=== PATIENT | female | born 1955 | race Caucasian/White ===

== ENCOUNTER 2017-02-14 13:50 | Emergency (ER) | payer MEDICAID ==
[~2017-02-14] VITALS: Ht 154.9 cm; Wt 60.0 kg
[~2017-02-14 13:50] MED LIST: ATOR40TA16 PO; BACL10TA PO; BUSP5TAB PO; DILA100C PO; LEVO100T5 PO; METF500T PO; REST15CA PO; TEGR200T PO
[2017-02-14 13:52] VITALS: BP 119/66; PULSE 70; RESP 17; TEMP 98.6; O2SAT 99
[2017-02-14] MEDS ORDERED: DIAZ5TAB PO (14:13)
[2017-02-14] MEDS ORDERED: SODIUM CHLOR 0.9% 1000 ML INJ 1,000 ML IV SCH (14:29)
[2017-02-14] MEDS ORDERED: SODIUM CHLORIDE 0.9% FLUSH 10 ML FLUSH IV FLUSH PRN (14:30)
--- NOTE | 2017-02-14 14:30 | PD ---
HPI Chief Complaint: GI Complaint Time Seen by Provider: 14:30 Travel History International Travel<30 days: No Contact w/Intl Traveler<30days: No Traveled to known affect area: No History of Present Illness HPI 61-year-old female with a history of hypertension, hyperlipidemia, diabetes, MS presents to the emergency department for evaluation of 1 week history of diarrhea. The patient states that she has had some intermittent abdominal cramping as well in the periumbilical region. Diarrhea is loose light brown watery stool multiple times throughout the day, states that the first 6 hours of today she's had 5 bowel movements already. She denies fever but admits to chills. States that she had one episode of nausea and dry heaves several days ago. Denies any vomiting. Denies cough or cold symptoms, dysuria, hematuria. Denies any aggravating or alleviating factors. She's been taking Imodium with no improvement of symptoms. The patient denies any recent travel. States that she has been visiting her sister in the hospital before the symptoms began. Denies any prior abdominal surgeries. No other complaints. PFSH Past Medical History Arthritis: Yes Autoimmune Disease: Yes (ms) Anxiety: Yes Cardiovascular Problems: Yes (heart disease) High Cholesterol: Yes Chest Pain: Yes Cerebrovascular Accident: Yes Coronary Artery Disease: Yes Diabetes: Yes Patient Takes Glucophage: Yes Herniated Disk: Yes Hypertension: Yes Immune Disorder: Yes (muscular sclerosis) Insomnia: Yes Neurologic: Yes (TRIGEMINAL NEUROLGIA) Thyroid Disease: Yes Tetanus Vaccination: > 5 Years Influenza Vaccination: No Menopausal: Yes Dilation and Curettage (D&C): Yes Past Surgical History Surgical History: No Previous Surgery Tonsillectomy: Yes Social History Alcohol Use: No Tobacco Use: No Substance Use: No Allergies-Medications (Allergen,Severity, Reaction): Coded Allergies: Neurontin (Verified Allergy, Severe, 02/14/17) Reported Meds & Prescriptions Reported Meds & Active Scripts Active Flagyl (Metronidazole) 500 Mg Tab 500 Mg PO TID 10 Days Reported Diazepam 5 Mg Tab 5 Mg PO Restoril (Temazepam) 15 Mg Cap 15 Mg PO HS PRN Dilantin (Phenytoin Extended) 100 Mg Cap 100 Mg PO TID Metformin (Metformin HCl) 500 Mg Tab 500 Mg PO DAILY With a meal Levothyroxine (Levothyroxine Sodium) 100 Mcg Tab 100 Mcg PO DAILY Tegretol (Carbamazepine) 200 Mg Tab 400 Mg PO BID Baclofen 10 Mg Tab 10 Mg PO TID Atorvastatin (Atorvastatin Calcium) 40 Mg Tab 40 Mg PO HS Review of Systems Except as stated in HPI: all other systems reviewed are Neg Physical Exam Narrative GENERAL: Well-nourished and well-developed pleasant patient in no acute distress who is nontoxic appearing. SKIN: Warm and dry. HEAD: Normocephalic and atraumatic. EYES: No injection, drainage, or hyphema noted. PERRLA. EOMI. ENT: No nasal drainage noted. Oropharynx is clear. NECK: Supple and the trachea is midline. CARDIOVASCULAR: Regular rate and rhythm. RESPIRATORY: Breath sounds are equal bilaterally with no accessory muscle use, wheezing, rhonchi, or crackles. GASTROINTESTINAL: Mild periumbilical tenderness to palpation. No rebound tenderness or guarding. Negative Asher's sign. Negative McBurney's point. Abdomen is soft, non-tender, and nondistended. MUSCULOSKELETAL: No obvious deformities, swelling, cyanosis, or ecchymosis is present throughout the upper and lower extremities. Patient has full range of motion without any signs of neurovascular compromise. NEUROLOGICAL: Awake, alert, and oriented. Normal speech and gait. Cranial nerves are grossly intact. Data Data Last Documented VS Vital Signs Date Time Temp Pulse Resp B/P Pulse Ox O2 Delivery O2 Flow Rate FiO2 02/14/17 13:52 98.6 70 17 119/66 99 Orders Complete Blood Count With Diff (02/14/17 14:29) Comprehensive Metabolic Panel (02/14/17 14:29) Lipase (02/14/17 14:29) Ct Abd/Pel W Iv Contrast(Rout) (02/14/17 14:29) Iv Access Insert/Monitor (02/14/17 14:29) Ecg Monitoring (02/14/17 14:29) Oximetry (02/14/17 14:29) Sodium Chlor 0.9% 1000 Ml Inj (Ns 1000 M (02/14/17 14:29) Sodium Chloride 0.9% Flush (Ns Flush) (02/14/17 14:30) Iohexol 350 Inj (Omnipaque 350 Inj) (02/14/17 16:38) Labs Laboratory Tests Test 02/14/17 15:20 White Blood Count 6.3 TH/MM3 Red Blood Count 3.60 MIL/MM3 Hemoglobin 10.9 GM/DL Hematocrit 32.0 % Mean Corpuscular Volume 88.9 FL Mean Corpuscular Hemoglobin 30.2 PG Mean Corpuscular Hemoglobin 33.9 % Concent Red Cell Distribution Width 14.6 % Platelet Count 352 TH/MM3 Mean Platelet Volume 7.6 FL Neutrophils (%) (Auto) 65.1 % Lymphocytes (%) (Auto) 22.9 % Monocytes (%) (Auto) 10.8 % Eosinophils (%) (Auto) 0.9 % Basophils (%) (Auto) 0.3 % Neutrophils # (Auto) 4.1 TH/MM3 Lymphocytes # (Auto) 1.4 TH/MM3 Monocytes # (Auto) 0.7 TH/MM3 Eosinophils # (Auto) 0.1 TH/MM3 Basophils # (Auto) 0.0 TH/MM3 CBC Comment DIFF FINAL Differential Comment Sodium Level 134 MEQ/L Potassium Level 3.7 MEQ/L Chloride Level 99 MEQ/L Carbon Dioxide Level 26.2 MEQ/L Anion Gap 9 MEQ/L Blood Urea Nitrogen 29 MG/DL Creatinine 1.01 MG/DL Estimat Glomerular Filtration 56 ML/MIN Rate Random Glucose 84 MG/DL Calcium Level 9.0 MG/DL Total Bilirubin 0.2 MG/DL Aspartate Amino Transf 32 U/L (AST/SGOT) Alanine Aminotransferase 42 U/L (ALT/SGPT) Alkaline Phosphatase 166 U/L Total Protein 8.4 GM/DL Albumin 3.9 GM/DL Lipase 197 U/L [facility] Medical Decision Making Medical Screen Exam Complete: Yes Emergency Medical Condition: Yes Differential Diagnosis Colitis versus diverticulitis versus C. difficile versus dehydration versus electrolyte abnormality versus gastroenteritis Narrative Course 61-year-old female presents to the emergency department for evaluation of diarrhea for one week with mild abdominal cramping. Patient is afebrile, vital signs are stable. Abdominal examination is essentially benign. IV access obtained, labs were drawn and sent. Patient is placed on cardiac telemetry and pulse oximetry monitoring. CT of the abdomen and pelvis has been ordered and is pending. Patient is administered IV fluids. CBC shows mild anemia with hemoglobin of 10.9, hematocrit 30.0. CMP shows mild dehydration with a creatinine 1.01, BUN 29, GFR 56. CT the abdomen and pelvis shows chronic atherosclerotic vascular calcifications and a small left ovarian cyst, no acute abnormalities. Patient has remained stable without complaint N the emergency department. Unfortunately she's been unable to provide a stool specimen while here in the ED. Due to the patient's recent exposure with visiting her sister in the hospital over the past week correlated with this diarrhea we'll treat her for possible C. difficile with Flagyl. Did discuss with the patient that this could potentially be contagious if she does have C. difficile and that she needs to wash her hands frequently and undergo contact precautions. Patient verbalizes understanding and agreement with treatment plan. I discussed the case with my attending physician Dr. Craig who is aware of the patients history, physical examination findings, and treatment plan. Diagnosis Primary Impression: Diarrhea Qualified Code: A09 - Diarrhea of presumed infectious origin Referrals: Primary Care Physician Patient Instructions: Acute Diarrhea (ED), General Instructions Additional Instructions: Take medications as prescribed with food and a full glass of water. Follow-up with your Primary Care Physician. Return to the ED for any acute worsening of symptoms. Med/Other Pt SpecificInfo: Prescription(s) given Scripts Metronidazole (Flagyl)500 Mg [id number] Mg PO TID 10 Days Ref 0 Prov:Feliz Craig MD 02/14/17 Disposition: 01 DISCHARGE HOME Condition: Stable Deanne Treviño Feb 14, 2017 14:30
[2017-02-14 15:38] LABS: AUTOMATED NEUTROPHIL # 4.1 TH/MM3 (1.8-7.7); BASOPHIL % 0.3 % (0.0-2.0); EOSINOPHIL # 0.1 TH/MM3 (0-0.4); EOSINOPHIL % 0.9 % (0.0-4.0); HEMO FLAGS DIFF FINAL; LYMPH % 22.9 % (9.0-44.0); LYMPHOCYTE # 1.4 TH/MM3 (1.0-4.8); MEAN CELL VOLUME 88.9 FL (80.0-100.0); MEAN CORPUSCULAR HEMOGLOBIN 30.2 PG (27.0-34.0); MEAN CORPUSCULAR HGB CONC 33.9 % (32.0-36.0); MONO % 10.8 % (0.0-8.0); NEUT % 65.1 % (16.0-70.0); PLATELET COUNT 352 TH/MM3 (150-450); RED CELL DISTRIBUTION WIDTH 14.6 % (11.6-17.2); WHITE BLOOD COUNT 6.3 TH/MM3 (4.0-11.0)
[2017-02-14 16:02] LABS: ALT (GPT) 42 U/L (10-53); ANION GAP 9 MEQ/L (5-15); AST (GOT) 32 U/L (15-37); BICARBONATE 26.2 MEQ/L (21.0-32.0); BLOOD UREA NITROGEN 29 MG/DL (7-18); CHLORIDE 99 MEQ/L (98-107); GLOMERULAR FILTRATION RATE 56 ML/MIN (>89); POTASSIUM 3.7 MEQ/L (3.5-5.1); SODIUM (NA) 134 MEQ/L (136-145)
[2017-02-14 16:04] LABS: ALKALINE PHOSPHATASE 166 U/L (45-117); TOTAL BILIRUBIN ADULT 0.2 MG/DL (0.2-1.0)
[2017-02-14] MEDS ORDERED: IOHEXOL 350 MG/ML 10 ML VIAL (for RAD DIAG) IV ONE (16:38)
--- NOTE | 2017-02-14 16:57 | RADRPT ---
EXAM DATE/TIME: 02/14/2017 16:25 [facility] COMPARISON: No previous studies available for comparison. INDICATIONS : Abdomen pain. IV CONTRAST: 85 cc Omnipaque 350 (iohexol) IV ORAL CONTRAST: No oral contrast ingested. RADIATION DOSE: 6.22 CTDIvol (mGy) MEDICAL HISTORY : Cardiovascular disease. Multiple sclerosis. SURGICAL HISTORY : None. ENCOUNTER: Initial ACUITY: 1 week PAIN SCALE: 4/10 LOCATION: Bilateral abdomen TECHNIQUE: Volumetric scanning of the abdomen and pelvis was performed. Using automated exposure control and ad justment of the mA and/or kV according to patient size, radiation dose was kept as low as reasonably achievable to obtain optimal diagnostic quality images. FINDINGS: CT Abdomen: The liver, spleen, pancreas, kidneys, adrenals are unremarkable. There is no evidence for any appreciable pathological adenopathy, free fluid, or bowel obstruction. Chronic vascular calcifi cations are present involving the aorta, iliac arteries without any significant stenosis or aneurysma l dilatations for technique. CT pelvis: There is no evidence for mass, abscess formation, or any significant adenopathy within the pelvis. Approximate 1.3 cm cyst is present in the left ovary. CONCLUSION: Chronic atherosclerotic vascular calcifications and small left ovarian cyst, otherwis e unremarkable. Danielle Connor MD on February 14, 2017 at 16:53 Board Certified Radiologist. This report was verified electronically.
[2017-02-14] MEDS ORDERED: METR-1 PO (17:22)
[2017-02-14] MEDS ORDERED: metroNIDAZOLE 500 MG TAB PO ONE (17:30)
== END 2017-02-14 17:47 | disposition home or self-care (01) ==
LOC: NEPD 13:50
DX: R19.7 Diarrhea, unspecified (principal); I10 Essential (primary) hypertension; E11.9 Type 2 diabetes mellitus without complications; E78.00 Pure hypercholesterolemia, unspecified; E86.0 Dehydration; N83.202 Unspecified ovarian cyst, left side
CPT/HCPCS: 74177; 80053; 83690; 85025; 96360; 99284; J7030; Q9967

== ENCOUNTER 2017-07-24 13:19 | Emergency (ER) | payer MEDICAID ==
[~2017-07-24] VITALS: Ht 154.9 cm; Wt 57.0 kg
[~2017-07-24 13:19] MED LIST changes: -BUSP5TAB PO; +DIAZ5TAB PO; +METR-1 PO
[2017-07-24 13:24] VITALS: BP 110/67; PULSE 97; RESP 15; TEMP 98.7; O2SAT 99
[2017-07-24 13:53] VITALS: BP 126/58; PULSE 89; RESP 17; TEMP 97.8; O2SAT 98
[2017-07-24] MEDS ORDERED: ASPI81CH37 PO (13:57)
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
[2017-07-24] MEDS ORDERED: ONDANSETRON ODT 4 MG TAB PO ONE (14:00)
[2017-07-24] MEDS ORDERED: ACETAMINOPHEN/CODEINE 300 MG/30 MG TAB PO ONE (14:00)
--- NOTE | 2017-07-24 14:46 | RADRPT ---
EXAM DATE/TIME: 07/24/2017 14:20 [facility] COMPARISON: No previous studies available for comparison. INDICATIONS : Fall, trauma to left eye. RADIATION DOSE: 45.79 CTDIvol (mGy) MEDICAL HISTORY : Multple sclerosis. Stroke Hypertension. SURGICAL HISTORY : None. ENCOUNTER: Initial ACUITY: 1 day PAIN SCALE: 5/10 LOCATION: Left head TECHNIQUE: Multiple contiguous axial images were obtained of the head. Using automated exposure control and adj ustment of the mA and/or kV according to patient size, radiation dose was kept as low as reasonably a chievable to obtain optimal diagnostic quality images. DICOM format image data is available electro nically for review and comparison. FINDINGS: CEREBRUM: The ventricles are normal for age. No evidence of midline shift, mass lesion, hemorrhage or acute in farction. No extra-axial fluid collections are seen. POSTERIOR FOSSA: The cerebellum and brainstem are intact. The 4th ventricle is midline. The cerebellopontine angle i s unremarkable. EXTRACRANIAL: The visualized portion of the orbits is intact. SKULL: The calvaria is intact. No evidence of skull fracture. CONCLUSION: Normal examination. Chandrakant Rothman MD on July 24, 2017 at 14:44 Board Certified Radiologist. This report was verified electronically.
--- NOTE | 2017-07-24 14:48 | RADRPT ---
EXAM DATE/TIME: 07/24/2017 14:20 [facility] COMPARISON: No previous studies available for comparison. INDICATIONS : Fall, trauma to left eye. RADIATION DOSE: 36.57 CTDIvol (mGy) MEDICAL HISTORY : Multple sclerosis. Stroke Hypertension. SURGICAL HISTORY : None. ENCOUNTER: Initial ACUITY: 1 day PAIN SCORE: 6/10 LOCATION: Left eye TECHNIQUE: Volumetric scanning of the facial bones was performed. Using automated exposure control and adjustme nt of the mA and/or kV according to patient size, radiation dose was kept as low as reasonably achiev able to obtain optimal diagnostic quality images. DICOM format image data is available electronicMUJIN y for review and comparison. FINDINGS: ORBITS: The orbital and infraorbital osseous structures are intact. The retroconal structures have a normal configuration. No radiopaque foreign bodies are seen. NASAL BONE: The nasal bone and maxillary spine are intact ZYGOMATIC ARCHES: Symmetric without evidence of fracture. SINUSES: The maxillary, ethmoid and frontal sinuses are intact. No air-fluid levels seen. NASAL CAVITY: The nasal septum is intact and midline. The lacrimal ducts are intact. SOFT TISSUES: No radiopaque foreign bodies seen. No soft-tissue swelling is seen. INTRACRANIAL: No intracranial air seen. CRIBIFORM PLATE: Grossly intact. CONCLUSION: Normal examination. Chandrakant Rothman MD on July 24, 2017 at 14:45 Board Certified Radiologist. This report was verified electronically.
[2017-07-24] MEDS ORDERED: FIOR30CA12 PO (14:55)
[2017-07-24] MEDS ORDERED: DIAZEPAM 10 MG TAB PO ONE (15:00)
[2017-07-24 15:03] VITALS: RESP 16
[2017-07-24 15:10] VITALS: BP 122/83; TEMP 97.8
== END 2017-07-24 15:10 | disposition home or self-care (01) ==
LOC: NEPE 13:19
DX: S00.83XA Contusion of other part of head, initial encounter (principal); W19.XXXA Unspecified fall, initial encounter
CPT/HCPCS: 70450; 70486